=== PATIENT | male | born 2005 | race Caucasian/White ===

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

== ENCOUNTER 2025-05-01 17:44 | Emergency (ER) | payer SELFPAY ==
[2019-11-21 14:46] VITALS: BP 132/76; BMI 39.6
[2025-05-01 17:53] VITALS: BP 171/112; PULSE 117; RESP 18; TEMP 36.7; O2SAT 95
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
[2025-05-01] MEDS: morphine 4 mg/mL SDV 1 mL IVP (18:20)
[2025-05-01] MEDS: ondansetron 2 mg/ML SDV 2 mL 4 MG IVP (18:20)
[2025-05-01] MEDS: iohexol 350 mg/mL 500 mL Btl (per mL) IV (18:25)
--- NOTE | 2025-05-01 18:39 | PC.NURSE ---
pt left for CT @182
[2025-05-01] MEDS: HYDROmorphone 0.5 MG/0.5 ML INJ IVP (19:21)
[2025-05-01 19:26] VITALS: PULSE 141; RESP 17; O2SAT 94
[2025-05-01] MEDS: ceFAZolin 1,000 mg SDV 1000 MG IVP (19:59)
[2025-05-01 20:16] VITALS: PULSE 127; RESP 19; O2SAT 95
[2025-05-01 20:19] VITALS: BP 142/85
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
== END 2025-05-01 20:40 | disposition home or self-care (01) ==
PROVIDERS: Emergency Provider Physician Assistant; PCP Family Medicine
DX: S81.012A Laceration without foreign body, left knee, initial encounter (principal); S92.002A Unspecified fracture of left calcaneus, initial encounter for closed fracture; V89.0XXA Person injured in unspecified motor-vehicle accident, nontraffic, initial encounter; S80.812A Abrasion, left lower leg, initial encounter; S80.811A Abrasion, right lower leg, initial encounter; S40.812A Abrasion of left upper arm, initial encounter; S40.811A Abrasion of right upper arm, initial encounter
CPT/HCPCS: 12002; 29515; 70450; 70486; 71260; 72125; 73562; 73590; 73630; 74177; 96374; 96375; 99285; A6446; E0114; J0690; J1171; J1885; J2270; J2405